=== PATIENT | male | born 1965 | race Caucasian/White ===

== ENCOUNTER 2018-11-03 08:21 | Inpatient (IN) | payer OTHER ==
[~2018-11-03] VITALS: Ht 167.6 cm; Wt 84.8 kg
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
--- NOTE | ~2018-11-03 | PATH ---
[facility] [address] [place] [address] PATHOLOGY RPT PROCEDURE Name: CHUCKY JENNINGS Room #: 428-P ADM IN M.R.#: [id number] Admission: 11/03/18 Date of : 61 Discharge: Report #: [id number] Path Case #: [id number] [facility] Accession Number: [id number] . 01 Material submitted: . PART A: RIGHT ISCHIAL TUBEROSITY ULCER TISSUE PART B: LEFT ISCHIAL TUBEROSITY ULCER TISSUE . 01 Clinical history: . Stage IV decubitus ulcers on bilateral ischial tuberosities . 02 Diagnosis: A. Right ischial tuberosity ulcer tissue, debridement: - Marked acute inflammation along with gangrenous necrosis and fibrinoid degeneration extending into underlying subcutaneous tissues, consistent with the provided history of ulcer. . B. Left ischial tuberosity ulcer tissue, debridement: - Marked acute inflammation along with gangrenous necrosis and fibrinoid degeneration extending into underlying subcutaneous tissues, consistent with the provided history of ulcer. (IUV:chelsea; 11/06/2018) QMS/11/06/2018 . 02 Electronically signed: . Amber Tirado MD, Pathologist NPI- [id number] . 01 Gross description: . A. Received in formalin labeled "Chucky Jennings, right ischial tuberosity ulcer tissue," is a 10.2 x 8.3 x 4.2 cm aggregate of yellow-lacey to partially necrotic-appearing soft tissue and granular, ayala-lacey skin. Serial sectioning reveals yellow-lacey to partially necrotic-appearing cut surfaces. Director Of Compensation tissue is submitted in cassette A1. . B. Received in formalin labeled "Chucky Jennings, left ischial tuberosity ulcer tissue," is a segment of yellow-lacey, partially necrotic-appearing soft tissue with scant attached possible granular, pale lacey skin measuring 8.2 x 5.2 x 4.7 cm in greatest dimensions. Serial sectioning reveals yellow-lacey to partially necrotic-appearing cut surfaces. Director Of Compensation tissue is submitted in cassette B1. (DAC; 11/05/2018) XDC/XDC . 02 Pathologist provided ICD-10: L89.224, L89.214 . 02 [place] [address] PATHOLOGY RPT PROCEDURE Name: CHUCKY JENNINGS Room #: 428-P ADM IN M.R.#: [id number] Admission: 11/03/18 Date of : 61 Discharge: Report #: [id number] Path Case #: [id number] CPT . 623195, [id number] Specimen Comment: A courtesy copy of this report has been sent to Specimen Comment: [phone], . Specimen Comment: Report sent to / DR RAY Specimen Comment: A duplicate report has been generated due to demographic updates. Performed at: [address] [facility] [address], [place] [id number] MD Lizandro Painter MD Phone: [phone] Performed at: [address] [facility] [address] [id number] MD Amber Tirado MD Phone: [phone]
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
[2018-11-03 08:26] VITALS: BP 127/68
[2018-11-03 08:55] LABS: ABSOLUTE NEUTROPHILS 9.9 thou/uL (1.4-8.2); BASOPHILS 1.2 % (0.0-2.0); EOSINOPHILS 0.9 % (0.0-3.0); HEMATOCRIT 37.8 % (42.0-52.0); HEMOGLOBIN 12.3 gm/dL (14.0-18.0); LYMPHOCYTES 4.5 % (24.0-44.0); MCH 26.6 pg (26.0-34.0); MCHC 32.6 g/dL (28.0-37.0); MCV 81.5 fL (80.0-100.0); MONOCYTES 3.8 % (1.0-8.0); PLATELET COUNT 521 thou/uL (150-400); POLYS 89.6 % (36.0-66.0); RBC 4.63 mil/uL (4.50-6.00); RDW 17.1 % (10.5-14.5); WBC 11.1 thou/uL (4.0-11.0)
[2018-11-03 08:58] LABS: CALCIUM 8.6 mg/dL (8.5-10.1); POTASSIUM 3.8 mmol/L (3.5-5.1)
[2018-11-03 09:04] LABS: ALBUMIN 2.1 g/dL (3.4-5.0); TOTAL BILIRUBIN 0.4 mg/dL (<0.1-1.0); TOTAL PROTEIN 7.4 g/dL (6.4-8.2)
[2018-11-03 09:12] LABS: URINE BLOOD 2+ (Negative); URINE CLARITY SL CLOUDY; URINE COLOR YELLOW; URINE GLUCOSE-RANDOM* NEGATIVE (Negative); URINE KETONES NEGATIVE (Negative); URINE PROTEIN (DIPSTICK) 1+ (Negative); URINE SPECIFIC GRAVITY 1.015 (1.005-1.035)
[2018-11-03 09:13] LABS: ICTOTEST (BILI CONFIRMATORY) Negative (Negative); URINE BILIRUBIN NEGATIVE (Negative); URINE LEUKOCYTES-REFLEX 3+ (Negative); URINE NITRITE-REFLEX POSITIVE (Negative)
[2018-11-03 09:18] LABS: CASTS None Seen /LPF (None Seen); SQUAMOUS None Seen /LPF (0-3); TRIPLE PHOSPHATE CRYSTALS 0-3 Few /LPF (None Seen); URINE WBC-REFLEX >25 Many /HPF (0-5)
[2018-11-03 09:19] LABS: URINE RBC 3-10 Few /HPF (0-2)
[2018-11-03] MEDS ORDERED: NORVASC5 MG PO (09:42)
[2018-11-03] MEDS ORDERED: MIRALAX17 GM PO (09:42)
[2018-11-03 12:08] VITALS: BP 97/63
[2018-11-03 12:44] VITALS: BP 123/69
[2018-11-03 13:00] VITALS: BP 116/68
[2018-11-03 15:41] LABS: TSH 2.415 uIU/mL (0.358-3.740)
[2018-11-03 17:00] VITALS: BP 108/68
[2018-11-03 18:48] LABS: INR 1.1; PROTIME 11.6 Seconds (9.3-11.4)
[2018-11-03 20:19] VITALS: BP 98/52
[2018-11-04 04:44] VITALS: BP 97/56
[2018-11-04 06:29] LABS: HEMATOCRIT 34.3 % (42.0-52.0); MCH 26.2 pg (26.0-34.0); RBC 4.18 mil/uL (4.50-6.00); RDW 17.4 % (10.5-14.5); WBC 9.4 thou/uL (4.0-11.0)
[2018-11-04 06:38] LABS: CALCIUM 8.2 mg/dL (8.5-10.1); CREATININE 1.1 mg/dL (0.7-1.3); POTASSIUM 3.7 mmol/L (3.5-5.1)
[2018-11-04 08:30] VITALS: BP 91/51
[2018-11-04 10:26] VITALS: BP 91/51
[2018-11-04 16:45] VITALS: BP 97/63
[2018-11-04 19:13] VITALS: BP 88/55
[2018-11-05 04:00] VITALS: BP 97/60
[2018-11-05 06:07] LABS: ABSOLUTE NEUTROPHILS 7.4 thou/uL (1.4-8.2); BASOPHILS 0.2 % (0.0-2.0); HEMATOCRIT 32.8 % (42.0-52.0); HEMOGLOBIN 10.5 gm/dL (14.0-18.0); LYMPHOCYTES 4.7 % (24.0-44.0); MCH 26.2 pg (26.0-34.0); MCHC 31.9 g/dL (28.0-37.0); MONOCYTES 3.3 % (1.0-8.0); PLATELET COUNT 440 thou/uL (150-400); POLYS 91.8 % (36.0-66.0)
[2018-11-05 06:23] LABS: CALCIUM 8.2 mg/dL (8.5-10.1); CREATININE 0.8 mg/dL (0.7-1.3); POTASSIUM 4.2 mmol/L (3.5-5.1)
[2018-11-05 07:45] VITALS: BP 100/60
[2018-11-05 12:00] VITALS: BP 100/60
[2018-11-05 15:39] VITALS: BP 101/59
[2018-11-05 20:00] VITALS: BP 111/62
[2018-11-06 04:30] VITALS: BP 104/70
[2018-11-06 07:52] VITALS: BP 103/62
[2018-11-06 19:56] VITALS: BP 110/69
[2018-11-07 04:10] VITALS: BP 107/59
[2018-11-07 07:50] VITALS: BP 99/60
[2018-11-07 11:06] VITALS: BP 99/60
[2018-11-07] MEDS ORDERED: VITAMIN B-1100 M2 PO (12:58)
[2018-11-07] MEDS ORDERED: PRENATAL PO (12:58)
[2018-11-07] MEDS ORDERED: ZOSYN 3.3753.375 GM IV (12:58)
[2018-11-07] MEDS ORDERED: NICOTINE TRANSD14 M1 TRANSDERM (12:58)
[2018-11-07 15:28] VITALS: BP 99/60
[2018-11-07 15:30] VITALS: BP 110/63
[2018-11-07 16:30] VITALS: BP 110/63
== END 2018-11-07 18:50 | DRG 628 ==
LOC: ER 08:21 → EROBS 11:23 → 4E 13:00
PROVIDERS: Emergency Medicine; Hospitalist; Surgery
DX: E11.69 Type 2 diabetes mellitus with other specified complication (principal); L89.134 Pressure ulcer of right lower back, stage 4; L89.144 Pressure ulcer of left lower back, stage 4; G82.20 Paraplegia, unspecified; E44.0 Moderate protein-calorie malnutrition; N13.6 Pyonephrosis; M86.8X8 Other osteomyelitis, other site; E11.65 Type 2 diabetes mellitus with hyperglycemia; D72.829 Elevated white blood cell count, unspecified; L89.620 Pressure ulcer of left heel, unstageable; I10 Essential (primary) hypertension; T14.8XXA Other injury of unspecified body region, initial encounter; F17.210 Nicotine dependence, cigarettes, uncomplicated; R33.9 Retention of urine, unspecified; Z68.30 Body mass index [BMI] 30.0-30.9, adult; N31.9 Neuromuscular dysfunction of bladder, unspecified; L89.610 Pressure ulcer of right heel, unstageable; V89.2XXA Person injured in unspecified motor-vehicle accident, traffic, initial encounter; Y93.89 Activity, other specified; Y92.89 Other specified places as the place of occurrence of the external cause; Y99.8 Other external cause status; Z79.899 Other long term (current) drug therapy
CPT/HCPCS: 10783; 27000; 50010; 50101; 50386; 50403; 62110; 62900; 65130; 70005